=== PATIENT | female | born 1940 | race Caucasian/White ===

== ENCOUNTER → 2019-09-19 | Outpatient (CLI) | payer MEDICARE ==
[~2019-09-19] MED LIST: CHOL100044 PO; DULO60CA64 PO; FERS325 PO; GABA-531 PO; PANT40TA25 PO; PRAV40TA3 PO; RIVA20TA PO; SENN8.6T90 PO; metoprolol PO; vitamin B12 PO
== END | disposition home or self-care (01) ==
LOC: SHCH 12:47
PROVIDERS: ATTEND Internal Medicine Cardiovascular Disease
DX: I73.9 Peripheral vascular disease, unspecified (principal); I87.2 Venous insufficiency (chronic) (peripheral)
CPT/HCPCS: 93925; 93970

== ENCOUNTER → 2020-12-11 | Outpatient (CLI) | payer MEDICARE ==
[~2020-12-11] MED LIST changes: -PANT40TA25 PO; +PANT40TA54 PO
== END | disposition home or self-care (01) ==
LOC: RAH 08:40
PROVIDERS: ATTEND Internal Medicine Gastroenterology
DX: K22.5 Diverticulum of esophagus, acquired (principal); K44.9 Diaphragmatic hernia without obstruction or gangrene
CPT/HCPCS: 74220

== ENCOUNTER 2022-05-16 09:51 | Emergency (ER) | payer MEDICARE ==
[~2022-05-16] VITALS: Ht 172.7 cm; Wt 85.7 kg
[2022-05-16 10:32] LABS: BASOPHILS % (AUTO) 0.8 % (0.0-5.0); EOSINOPHILS % (AUTO) 2.6 % (0.0-8.0); HEMATOCRIT 41.6 % (36-48); LYMPHOCYTES % (AUTO) 13.4 % (21.0-51.0); MEAN CORPUSCULAR HEMOGLOBIN 32.4 pg (27.0-33.0); MEAN CORPUSCULAR HGB CONC 34.4 g/dL (32.0-36.0); MEAN CORPUSCULAR VOLUME 94.3 fL (79-99); MONOCYTES % (AUTO) 9.4 % (3.0-13.0); NEUTROPHILS % (AUTO) 73.4 % (40.0-77.0); PLATELET COUNT (AUTO) 269 K/uL (130-400); RED BLOOD CELL COUNT(AUTO) 4.41 MIL/uL (4.00-5.50); RED CELL DISTRIBUTION WIDTH 13.3 % (11.0-15.5); WHITE BLOOD COUNT (AUTO) 7.8 K/uL (4.8-10.8)
[2022-05-16 10:42] LABS: POTASSIUM 5.1 mmol/L (3.5-5.1)
[2022-05-16 10:47] LABS: ALBUMIN 3.4 g/dL (3.5-5.0); TOTAL PROTEIN, SERUM 7.2 g/dL (6.0-8.3)
[2022-05-16] MEDS ORDERED: HYDR-3420 PO (11:13)
[2022-05-16] MEDS ORDERED: HYDRALAZINE HCL 10 MG TABLET PO SCH (11:30)
[2022-05-16 12:21] VITALS: BP 153/86
[2022-05-16] MEDS ORDERED: LISI10TA24 PO (14:00)
== END 2022-05-16 12:41 | disposition home or self-care (01) ==
LOC: EDH 09:51
DX: I10 Essential (primary) hypertension (principal); I48.91 Unspecified atrial fibrillation; I25.10 Atherosclerotic heart disease of native coronary artery without angina pectoris; E78.00 Pure hypercholesterolemia, unspecified; Z79.899 Other long term (current) drug therapy; Z98.890 Other specified postprocedural states
CPT/HCPCS: 36415; 80053; 84484; 85025

== ENCOUNTER 2022-05-20 11:51 | Emergency (ER) | payer MEDICARE ==
[~2022-05-20] VITALS: Ht 172.7 cm; Wt 84.8 kg
[~2022-05-20 11:51] MED LIST changes: +HYDR-3420 PO; +LISI10TA24 PO
[2022-05-20 12:33] LABS: BASOPHILS % (AUTO) 1.1 % (0.0-5.0); EOSINOPHILS % (AUTO) 3.3 % (0.0-8.0); LYMPHOCYTES % (AUTO) 14.3 % (21.0-51.0); MEAN CORPUSCULAR HEMOGLOBIN 32.6 pg (27.0-33.0); MEAN CORPUSCULAR VOLUME 95.7 fL (79-99); MONOCYTES % (AUTO) 8.4 % (3.0-13.0); NEUTROPHILS % (AUTO) 72.7 % (40.0-77.0); PLATELET COUNT (AUTO) 292 K/uL (130-400); RED BLOOD CELL COUNT(AUTO) 4.39 MIL/uL (4.00-5.50); RED CELL DISTRIBUTION WIDTH 13.8 % (11.0-15.5)
[2022-05-20 12:53] LABS: CREATININE 0.9 mg/dL (0.5-1.5); POTASSIUM 5.3 mmol/L (3.5-5.1)
[2022-05-20 12:54] LABS: B-TYPE NATRIURETIC PEPTIDE 620 pg/mL (0-100)
[2022-05-20 12:56] LABS: TOTAL PROTEIN, SERUM 7.4 g/dL (6.0-8.3)
[2022-05-20 12:57] LABS: ALBUMIN 3.5 g/dL (3.5-5.0)
[2022-05-20 13:38] LABS: APPEARANCE,URINE SL CLOUDY (CLEAR); BILIRUBIN,URINE NEGATIVE (NEGATIVE); COLOR,URINE YELLOW (YELLOW); GLUCOSE, URINE (UA) NEGATIVE (NEGATIVE); KETONES,URINE NEGATIVE (NEGATIVE); LEUKOCYTE ESTERASE ,URINE TRACE (NEGATIVE); NITRATE,URINE NEGATIVE (NEGATIVE); OCCULT BLOOD,URINE NEGATIVE (NEGATIVE); PH,URINE 6.5 (5.0-8.0); PROTEIN,URINE 30 mg/dL (NEGATIVE)
[2022-05-20 13:46] LABS: BACTERIA,URINE Moderate /HPF (None Seen); MUCUS,URINE Few LPF (None Seen); RBC,URINE None Seen /HPF (0-1)
[2022-05-20 15:41] VITALS: BP 158/105
== END 2022-05-20 15:42 | disposition home or self-care (01) ==
LOC: EDH 11:51
DX: I10 Essential (primary) hypertension (principal); E86.9 Volume depletion, unspecified; E78.00 Pure hypercholesterolemia, unspecified; I25.10 Atherosclerotic heart disease of native coronary artery without angina pectoris; I48.91 Unspecified atrial fibrillation; J44.9 Chronic obstructive pulmonary disease, unspecified; Z79.899 Other long term (current) drug therapy
CPT/HCPCS: 36415; 71045; 80053; 81001; 83880; 84484; 85025; 87088; 93005

== ENCOUNTER 2022-06-02 14:12 | Emergency (ER) | payer MEDICARE ==
[~2022-06-02] VITALS: Ht 172.7 cm; Wt 84.8 kg
[2022-06-02 14:32] LABS: BASOPHILS % (AUTO) 0.8 % (0.0-5.0); EOSINOPHILS % (AUTO) 2.3 % (0.0-8.0); HEMATOCRIT 43.1 % (36-48); LYMPHOCYTES % (AUTO) 10.7 % (21.0-51.0); MEAN CORPUSCULAR HEMOGLOBIN 32.3 pg (27.0-33.0); MEAN CORPUSCULAR HGB CONC 33.4 g/dL (32.0-36.0); MEAN CORPUSCULAR VOLUME 96.6 fL (79-99); MONOCYTES % (AUTO) 9.4 % (3.0-13.0); NEUTROPHILS % (AUTO) 76.4 % (40.0-77.0); PLATELET COUNT (AUTO) 284 K/uL (130-400); RED BLOOD CELL COUNT(AUTO) 4.46 MIL/uL (4.00-5.50); RED CELL DISTRIBUTION WIDTH 13.9 % (11.0-15.5); WHITE BLOOD COUNT (AUTO) 8.5 K/uL (4.8-10.8)
[2022-06-02 14:40] LABS: POTASSIUM 4.6 mmol/L (3.5-5.1)
[2022-06-02 14:45] LABS: ALBUMIN 3.3 g/dL (3.5-5.0); MAGNESIUM 1.6 mg/dL (1.80-2.40); TOTAL PROTEIN, SERUM 6.8 g/dL (6.0-8.3)
[2022-06-02 14:58] LABS: B-TYPE NATRIURETIC PEPTIDE 470 pg/mL (0-100)
[2022-06-02] MEDS ORDERED: DIAZEPAM 5 MG/ML 2 ML SYG IVP ONE (15:00)
[2022-06-02] MEDS ORDERED: DIAZ5TAB PO (15:23)
[2022-06-02 15:53] VITALS: BP 139/63
== END 2022-06-02 15:30 | disposition home or self-care (01) ==
LOC: EDH 14:12
DX: F41.9 Anxiety disorder, unspecified (principal); R03.0 Elevated blood-pressure reading, without diagnosis of hypertension; I48.91 Unspecified atrial fibrillation; J44.9 Chronic obstructive pulmonary disease, unspecified; Z79.899 Other long term (current) drug therapy
CPT/HCPCS: 99285; 96374; 71045; 83735; 84484; 80053; 83880; 85025; 36415; 93005; J3360

== ENCOUNTER 2022-06-05 12:50 | Inpatient (IN) | payer MEDICARE ==
[~2022-06-05] VITALS: Ht 167.6 cm; Wt 82.3 kg
[~2022-06-05 12:50] MED LIST changes: +DIAZ5TAB PO
[2022-06-05 13:16] LABS: BASOPHILS % (AUTO) 0.5 % (0.0-5.0); EOSINOPHILS % (AUTO) 0.7 % (0.0-8.0); HEMATOCRIT 46.6 % (36-48); LYMPHOCYTES % (AUTO) 8.3 % (21.0-51.0); MEAN CORPUSCULAR HEMOGLOBIN 32.4 pg (27.0-33.0); MEAN CORPUSCULAR HGB CONC 33.5 g/dL (32.0-36.0); MEAN CORPUSCULAR VOLUME 96.7 fL (79-99); MONOCYTES % (AUTO) 9.3 % (3.0-13.0); NEUTROPHILS % (AUTO) 80.9 % (40.0-77.0); PLATELET COUNT (AUTO) 288 K/uL (130-400); RED BLOOD CELL COUNT(AUTO) 4.82 MIL/uL (4.00-5.50); RED CELL DISTRIBUTION WIDTH 13.8 % (11.0-15.5); WHITE BLOOD COUNT (AUTO) 9.9 K/uL (4.8-10.8)
[2022-06-05] MEDS ORDERED: DILTIAZEM 25MG INJ IVP ONE (13:30)
[2022-06-05 13:34] LABS: ALBUMIN 3.4 g/dL (3.5-5.0); CREATININE 1.1 mg/dL (0.5-1.5); POTASSIUM 4.5 mmol/L (3.5-5.1); TOTAL PROTEIN, SERUM 6.9 g/dL (6.0-8.3)
[2022-06-05] MEDS ORDERED: ACETAMINOPHEN 325 MG TAB PO PRN (15:00)
[2022-06-05] MEDS ORDERED: ONDANSETRON 4MG INJ IVP PRN (15:00)
[2022-06-05] MEDS ORDERED: LOSA100T58 PO (15:38)
[2022-06-05] MEDS ORDERED: PRAV40TA3 PO (15:38)
[2022-06-05] MEDS ORDERED: FLEC50TA3 PO ×2 (15:38)
[2022-06-05] MEDS ORDERED: FERS325 PO (15:38)
[2022-06-05] MEDS ORDERED: TRAZ-187 PO (15:40)
[2022-06-05] MEDS ORDERED: UMEC1DIS IH (15:43)
[2022-06-05] MEDS ORDERED: ALBU1.252 IH (15:43)
[2022-06-05] MEDS ORDERED: SENN-308 PO (15:43)
[2022-06-05 16:37] LABS: APPEARANCE,URINE CLEAR (CLEAR); BILIRUBIN,URINE NEGATIVE (NEGATIVE); COLOR,URINE YELLOW (YELLOW); GLUCOSE, URINE (UA) NEGATIVE (NEGATIVE); KETONES,URINE NEGATIVE (NEGATIVE); LEUKOCYTE ESTERASE ,URINE TRACE (NEGATIVE); NITRATE,URINE NEGATIVE (NEGATIVE); OCCULT BLOOD,URINE TRACE-INTACT (NEGATIVE); PROTEIN,URINE 100 mg/dL (NEGATIVE); UROBILINOGEN,URINE 0.2 mg/dL (0.2-1.0)
[2022-06-05 16:47] LABS: BACTERIA,URINE Few /HPF (None Seen); SQUAMOUS EPITHELIAL CELL,UR Few /HPF (0-2)
[2022-06-05 17:32] VITALS: BP 168/105
[2022-06-05] MEDS: FUROSEMIDE 40MG VIAL IV SCH (19:11)
[2022-06-05 21:00] VITALS: BP 155/88
[2022-06-05] MEDS: METOPROLOL TARTRATE 50 MG TAB PO SCH ×2 (21:00→22:49)
[2022-06-05] MEDS: PHARMACY COMMUNICATION MISC SCH ×2 (22:00→22:18)
[2022-06-05] MEDS ORDERED: METO100T14 PO (22:16)
[2022-06-05] MEDS: TRAZODONE HCL 100 MG TABLET PO SCH (22:49)
[2022-06-05] MEDS ORDERED: ALBUTEROL 0.083% 2.5 MG/3 ML INH IH ONE (23:17)
[2022-06-06] VITALS: BP 138/74
[2022-06-06] MEDS: PHARMACY COMMUNICATION MISC SCH ×3 (02:00→06:00)
[2022-06-06 04:00] VITALS: BP 143/91
[2022-06-06] MEDS ORDERED: ALBUTEROL 0.083% 2.5 MG/3 ML INH IH ONE (06:05)
[2022-06-06 06:51] LABS: HEMATOCRIT 44.3 % (36-48); MEAN CORPUSCULAR HEMOGLOBIN 32.5 pg (27.0-33.0); MEAN CORPUSCULAR HGB CONC 34.3 g/dL (32.0-36.0); MEAN CORPUSCULAR VOLUME 94.9 fL (79-99); RED BLOOD CELL COUNT(AUTO) 4.67 MIL/uL (4.00-5.50); RED CELL DISTRIBUTION WIDTH 13.9 % (11.0-15.5); WHITE BLOOD COUNT (AUTO) 6.8 K/uL (4.8-10.8)
[2022-06-06 07:00] VITALS: BP 159/90
[2022-06-06] MEDS: METOPROLOL TARTRATE 50 MG TAB PO SCH ×3 (07:34→20:04)
[2022-06-06 08:26] LABS: MAGNESIUM 1.3 mg/dL (1.80-2.40)
[2022-06-06] MEDS: PANTOPRAZOLE 40 MG TAB DR PO SCH (08:45)
[2022-06-06] MEDS: DULOXETINE HCL 30 MG CAP PO SCH (08:46)
[2022-06-06] MEDS: RIVAROXABAN 20 MG TABLET PO SCH (08:46)
[2022-06-06] MEDS ORDERED: FLECAINIDE ACETATE 50 MG PO SCH (09:00)
[2022-06-06] MEDS: MAGNESIUM 2GM PREMIX 50ML 50 ML IV PRN (10:08)
[2022-06-06] MEDS ORDERED: IPRATROPIUM 0.5 MG/2.5 ML INH IH ONE (10:58)
[2022-06-06 11:00] VITALS: BP 152/95
[2022-06-06] MEDS: IPRATROPIUM 0.5 MG/2.5 ML INH IH SCH ×3 (11:14→23:35)
[2022-06-06 16:00] VITALS: BP 175/94
[2022-06-06] MEDS: FUROSEMIDE 40MG VIAL IV SCH (17:05)
[2022-06-06 19:03] VITALS: BP 147/90
[2022-06-06] MEDS: TRAZODONE HCL 100 MG TABLET PO SCH (20:03)
[2022-06-06] MEDS: FERROUS SULFATE 325 MG TABLET.DR PO SCH (20:03)
[2022-06-06] MEDS: FLECAINIDE ACETATE 100 MG TABLET PO SCH (20:04)
[2022-06-06] MEDS: UMECLIDINIUM BRM IH SCH (20:04)
[2022-06-06] MEDS: VILANTEROL TR IH SCH (20:04)
[2022-06-06] MEDS: LOSARTAN 100 MG TABLET PO SCH (20:04)
[2022-06-06] MEDS: SIMVASTATIN 20 MG TABLET PO SCH (20:04)
[2022-06-06] MEDS: SENNOSIDES 8.6 MG TABLET PO SCH (20:04)
[2022-06-06] MEDS ORDERED: TRAZODONE HCL 100 MG TABLET PO SCH (21:00)
[2022-06-07 00:03] VITALS: BP 117/69
[2022-06-07 03:03] VITALS: BP 151/94
[2022-06-07 04:13] LABS: MEAN CORPUSCULAR HGB CONC 33.6 g/dL (32.0-36.0); MEAN CORPUSCULAR VOLUME 95.2 fL (79-99); RED BLOOD CELL COUNT(AUTO) 4.62 MIL/uL (4.00-5.50); RED CELL DISTRIBUTION WIDTH 13.8 % (11.0-15.5); WHITE BLOOD COUNT (AUTO) 7.6 K/uL (4.8-10.8)
[2022-06-07 04:26] LABS: MAGNESIUM 1.5 mg/dL (1.80-2.40); POTASSIUM 3.2 mmol/L (3.5-5.1)
[2022-06-07] MEDS ORDERED: POTASSIUM CHLORIDE 10% ELIXIR 20 MEQ/15 ML UDCUP PO PRN (04:30)
[2022-06-07] MEDS ORDERED: POTASSIUM CHLORIDE 10MEQ/100ML 100 ML IV PRN (04:30)
[2022-06-07] MEDS ORDERED: POTASSIUM CHLORIDE 20MEQ/100ML 100 ML IV PRN (04:30)
[2022-06-07] MEDS ORDERED: LIDOCAINE HCL-MPF 1% 2ML VIAL IV PRN (04:30)
[2022-06-07] MEDS: MAGNESIUM 2GM PREMIX 50ML 50 ML IV PRN (04:37)
[2022-06-07] MEDS ORDERED: KCL 20 MEQ ERTAB PO ONE (04:39)
[2022-06-07] MEDS: KCL 20 MEQ ERTAB PO PRN ×3 (04:43→11:15)
[2022-06-07] MEDS: IPRATROPIUM 0.5 MG/2.5 ML INH IH SCH ×2 (06:36→11:07)
[2022-06-07 07:00] VITALS: BP 151/74
[2022-06-07] MEDS ORDERED: REGADENOSON 0.4 MG/5 ML PF SYG IVP SCH (07:30)
[2022-06-07] MEDS: RIVAROXABAN 20 MG TABLET PO SCH (10:12)
[2022-06-07] MEDS: FLECAINIDE ACETATE 100 MG TABLET PO SCH ×2 (10:12→20:31)
[2022-06-07] MEDS: PANTOPRAZOLE 40 MG TAB DR PO SCH (10:12)
[2022-06-07] MEDS: DULOXETINE HCL 30 MG CAP PO SCH (10:12)
[2022-06-07] MEDS: METOPROLOL TARTRATE 50 MG TAB PO SCH ×2 (10:13→20:31)
[2022-06-07 11:00] VITALS: BP 164/88
[2022-06-07] MEDS ORDERED: AMLODIPINE 5 MG TAB ONE (12:15)
[2022-06-07] MEDS: AMLODIPINE 5 MG TAB PO SCH (12:19)
[2022-06-07] MEDS ORDERED: IPRATROPIUM 0.5 MG/2.5 ML INH IH PRN (13:00)
[2022-06-07 16:00] VITALS: BP 145/77
[2022-06-07 19:03] VITALS: BP 148/95
[2022-06-07] MEDS: LOSARTAN 100 MG TABLET PO SCH (20:31)
[2022-06-07] MEDS: SENNOSIDES 8.6 MG TABLET PO SCH (20:31)
[2022-06-07] MEDS: SIMVASTATIN 20 MG TABLET PO SCH (20:31)
[2022-06-07] MEDS: FERROUS SULFATE 325 MG TABLET.DR PO SCH (20:31)
[2022-06-07] MEDS: TRAZODONE HCL 100 MG TABLET PO SCH (20:31)
[2022-06-07] MEDS: VILANTEROL TR IH SCH (20:37)
[2022-06-07] MEDS: UMECLIDINIUM BRM IH SCH (20:37)
[2022-06-08] VITALS (8 sets, daily range): BP systolic 131–157; BP diastolic 58–102
[2022-06-08 04:52] LABS: CREATININE 0.9 mg/dL (0.5-1.5); MAGNESIUM 1.9 mg/dL (1.80-2.40); POTASSIUM 3.9 mmol/L (3.5-5.1)
[2022-06-08] MEDS ORDERED: FUROSEMIDE 20 MG TABLET PO SCH (09:00)
[2022-06-08] MEDS: RIVAROXABAN 20 MG TABLET PO SCH (09:16)
[2022-06-08] MEDS: HYDROCHLOROTHIAZIDE 25 MG TABLET PO SCH (09:17)
[2022-06-08] MEDS: METOPROLOL TARTRATE 50 MG TAB PO SCH ×2 (09:17→20:12)
[2022-06-08] MEDS: AMLODIPINE 5 MG TAB PO SCH (09:17)
[2022-06-08] MEDS: DULOXETINE HCL 30 MG CAP PO SCH (09:17)
[2022-06-08] MEDS: PANTOPRAZOLE 40 MG TAB DR PO SCH (09:17)
[2022-06-08] MEDS ORDERED: FUROSEMIDE 20 MG TABLET ONE (09:23)
[2022-06-08] MEDS: HYDRALAZINE HCL 10 MG TABLET PO SCH ×3 (09:26→20:16)
[2022-06-08] MEDS: KCL 20 MEQ ERTAB PO SCH (09:26)
[2022-06-08] MEDS: FLECAINIDE ACETATE 100 MG TABLET PO SCH ×2 (09:26→20:11)
[2022-06-08] MEDS: ISOSORBIDE MONONITRATE 20 MG TABLET PO SCH ×2 (09:27→20:12)
[2022-06-08] MEDS: FERROUS SULFATE 325 MG TABLET.DR PO SCH (20:11)
[2022-06-08] MEDS: SENNOSIDES 8.6 MG TABLET PO SCH (20:12)
[2022-06-08] MEDS: TRAZODONE HCL 100 MG TABLET PO SCH (20:12)
[2022-06-08] MEDS: LOSARTAN 100 MG TABLET PO SCH (20:12)
[2022-06-08] MEDS: SIMVASTATIN 20 MG TABLET PO SCH (20:12)
[2022-06-08] MEDS: VILANTEROL TR IH SCH (20:13)
[2022-06-08] MEDS: UMECLIDINIUM BRM IH SCH (20:13)
[2022-06-09 03:51] LABS: HEMATOCRIT 43.7 % (36-48); MEAN CORPUSCULAR HEMOGLOBIN 31.8 pg (27.0-33.0); MEAN CORPUSCULAR HGB CONC 32.5 g/dL (32.0-36.0); RED BLOOD CELL COUNT(AUTO) 4.46 MIL/uL (4.00-5.50); RED CELL DISTRIBUTION WIDTH 13.8 % (11.0-15.5); WHITE BLOOD COUNT (AUTO) 7.7 K/uL (4.8-10.8)
[2022-06-09 04:26] LABS: ALBUMIN 2.9 g/dL (3.5-5.0); CREATININE 0.8 mg/dL (0.5-1.5); MAGNESIUM 1.7 mg/dL (1.80-2.40); POTASSIUM 4.1 mmol/L (3.5-5.1); TOTAL PROTEIN, SERUM 6.4 g/dL (6.0-8.3)
[2022-06-09 04:56] VITALS: BP 122/83
[2022-06-09 07:01] VITALS: BP 125/69
[2022-06-09] MEDS: RIVAROXABAN 20 MG TABLET PO SCH (08:59)
[2022-06-09] MEDS: METOPROLOL TARTRATE 50 MG TAB PO SCH ×2 (08:59→21:59)
[2022-06-09] MEDS: PANTOPRAZOLE 40 MG TAB DR PO SCH (09:00)
[2022-06-09] MEDS: DULOXETINE HCL 30 MG CAP PO SCH (09:00)
[2022-06-09] MEDS: ISOSORBIDE MONONITRATE 20 MG TABLET PO SCH ×2 (09:00→21:57)
[2022-06-09] MEDS: HYDRALAZINE HCL 10 MG TABLET PO SCH ×3 (09:00→21:58)
[2022-06-09] MEDS: FLECAINIDE ACETATE 100 MG TABLET PO SCH ×2 (09:01→21:58)
[2022-06-09] MEDS: FUROSEMIDE 20 MG TABLET PO SCH (09:01)
[2022-06-09] MEDS: AMLODIPINE 5 MG TAB PO SCH (09:02)
[2022-06-09] MEDS: HYDROCHLOROTHIAZIDE 25 MG TABLET PO SCH (09:02)
[2022-06-09] MEDS: KCL 20 MEQ ERTAB PO SCH (09:07)
[2022-06-09] MEDS: MAGNESIUM 2GM PREMIX 50ML 50 ML IV PRN (11:43)
[2022-06-09 12:02] VITALS: BP 121/71
[2022-06-09 16:46] VITALS: BP 121/74
[2022-06-09 19:30] VITALS: BP 111/72
[2022-06-09] MEDS: VILANTEROL TR IH SCH (21:00)
[2022-06-09] MEDS: UMECLIDINIUM BRM IH SCH (21:00)
[2022-06-09] MEDS: SIMVASTATIN 20 MG TABLET PO SCH (21:57)
[2022-06-09] MEDS: LOSARTAN 100 MG TABLET PO SCH (21:58)
[2022-06-09] MEDS: SENNOSIDES 8.6 MG TABLET PO SCH (21:58)
[2022-06-09] MEDS: FERROUS SULFATE 325 MG TABLET.DR PO SCH (21:59)
[2022-06-09] MEDS: TRAZODONE HCL 100 MG TABLET PO SCH (22:01)
[2022-06-09 23:44] VITALS: BP 124/81
[2022-06-10 03:45] VITALS: BP 127/62
[2022-06-10 08:00] VITALS: BP 116/76
[2022-06-10] MEDS: ISOSORBIDE MONONITRATE 20 MG TABLET PO SCH (09:08)
[2022-06-10] MEDS: RIVAROXABAN 20 MG TABLET PO SCH (09:08)
[2022-06-10] MEDS: HYDROCHLOROTHIAZIDE 25 MG TABLET PO SCH (09:09)
[2022-06-10] MEDS: DULOXETINE HCL 30 MG CAP PO SCH (09:09)
[2022-06-10] MEDS: FLECAINIDE ACETATE 100 MG TABLET PO SCH (09:09)
[2022-06-10] MEDS: HYDRALAZINE HCL 10 MG TABLET PO SCH ×2 (09:09→15:03)
[2022-06-10] MEDS: FUROSEMIDE 20 MG TABLET PO SCH (09:10)
[2022-06-10] MEDS: AMLODIPINE 5 MG TAB PO SCH (09:10)
[2022-06-10] MEDS: METOPROLOL TARTRATE 50 MG TAB PO SCH (09:21)
[2022-06-10] MEDS: PANTOPRAZOLE 40 MG TAB DR PO SCH (09:21)
[2022-06-10] MEDS: KCL 20 MEQ ERTAB PO SCH (09:21)
[2022-06-10 11:00] VITALS: BP 124/85
== END 2022-06-10 16:32 | disposition home or self-care (01) | DRG 291 ==
LOC: EDH 12:50 → EDHIP 14:49 → 2DH 21:01
PROVIDERS: ADMIT Internal Medicine Infectious Disease; ATTEND Internal Medicine Infectious Disease
DX: I11.0 Hypertensive heart disease with heart failure (principal); I50.43 Acute on chronic combined systolic (congestive) and diastolic (congestive) heart failure; I16.1 Hypertensive emergency; L97.919 Non-pressure chronic ulcer of unspecified part of right lower leg with unspecified severity; Z20.822 Contact with and (suspected) exposure to COVID-19; I48.0 Paroxysmal atrial fibrillation; E66.9 Obesity, unspecified; Z96.653 Presence of artificial knee joint, bilateral; E78.00 Pure hypercholesterolemia, unspecified; M19.90 Unspecified osteoarthritis, unspecified site; F32.A Depression, unspecified; F41.9 Anxiety disorder, unspecified; I25.10 Atherosclerotic heart disease of native coronary artery without angina pectoris; J44.9 Chronic obstructive pulmonary disease, unspecified; Z79.899 Other long term (current) drug therapy; Z79.01 Long term (current) use of anticoagulants; Z85.3 Personal history of malignant neoplasm of breast; Z87.891 Personal history of nicotine dependence; Z90.11 Acquired absence of right breast and nipple; Z90.710 Acquired absence of both cervix and uterus; Z68.29 Body mass index [BMI] 29.0-29.9, adult
CPT/HCPCS: 36415; 71045; 78452; 80048; 80053; 81001; 82550; 83735; 83874; 83880; 84484; 85025; 85027; 87088; 87635; 93005; 93017; 93306; 93925; 94640; 94664; 96374; A9500; G0378; J1940; J2785; J3475; J3490

== ENCOUNTER 2022-07-05 08:41 | Day surgery (SDC) | payer MEDICARE ==
[2022-07-01 12:22] LABS: BASOPHILS % (AUTO) 0.6 % (0.0-5.0); EOSINOPHILS % (AUTO) 2.6 % (0.0-8.0); HEMATOCRIT 46.6 % (36-48); LYMPHOCYTES % (AUTO) 17.4 % (21.0-51.0); MEAN CORPUSCULAR HGB CONC 33.5 g/dL (32.0-36.0); MEAN CORPUSCULAR VOLUME 95.7 fL (79-99); MONOCYTES % (AUTO) 8.3 % (3.0-13.0); PLATELET COUNT (AUTO) 301 K/uL (130-400); RED BLOOD CELL COUNT(AUTO) 4.87 MIL/uL (4.00-5.50); RED CELL DISTRIBUTION WIDTH 13.3 % (11.0-15.5); WHITE BLOOD COUNT (AUTO) 8.1 K/uL (4.8-10.8)
[2022-07-01 12:33] LABS: APPEARANCE,URINE CLEAR (CLEAR); BILIRUBIN,URINE NEGATIVE (NEGATIVE); COLOR,URINE YELLOW (YELLOW); GLUCOSE, URINE (UA) NEGATIVE (NEGATIVE); KETONES,URINE NEGATIVE (NEGATIVE); LEUKOCYTE ESTERASE ,URINE 75 Leu/uL (NEGATIVE); NITRATE,URINE NEGATIVE (NEGATIVE); OCCULT BLOOD,URINE NEGATIVE (NEGATIVE); PROTEIN,URINE 10 mg/dL (NEGATIVE); UROBILINOGEN,URINE 0.2 mg/dL (0.2-1.0)
[2022-07-01 12:35] LABS: CREATININE 1.1 mg/dL (0.5-1.5); POTASSIUM 5.2 mmol/L (3.5-5.1)
[2022-07-01 12:38] LABS: PROTHROMBIN TIME 10.9 SEC (9.6-11.6)
[2022-07-01 12:40] LABS: PARTIAL THROMBOPLASTIN TIME 27.6 SEC (26.3-35.5)
[2022-07-01 12:46] LABS: B-TYPE NATRIURETIC PEPTIDE 388 pg/mL (0-100)
[2022-07-01 12:49] LABS: BACTERIA,URINE Moderate /HPF (None Seen); RBC,URINE 0-1 /HPF (0-1)
[2022-07-04 09:19] VITALS: BP 142/71
[2022-07-05] VITALS (12 sets, daily range): BP systolic 130–156; BP diastolic 66–96
[~2022-07-05] VITALS: Ht 172.7 cm; Wt 83.3 kg
[~2022-07-05 08:41] MED LIST changes: +0.9%NACL 1000ML 1,000 ML IV SCH; +ALBU1.252 IH; -CHOL100044 PO; -DIAZ5TAB PO; -GABA-531 PO; -LISI10TA24 PO; +LOSA100T58 PO; +Metoprolol Tartrate PO; +SENN-308 PO; -SENN8.6T90 PO; +TRAZ-187 PO; +UMEC1DIS IH; +VITAMIN B12 PO; +VITAMIN D3 PO; -metoprolol PO; -vitamin B12 PO
[2022-07-05] MEDS ORDERED: IOHEXOL-350 50ML VIAL IV ONE (09:54)
[2022-07-05] MEDS ORDERED: HEPARIN 10,000 UNIT/10ML (1,000 UNIT/ML) VIAL ONE (09:54)
[2022-07-05] MEDS ORDERED: IOHEXOL 350 MG/ML 100ML INFUS..BTL IV ONE (09:54)
[2022-07-05] MEDS ORDERED: MIDAZOLAM HCL 5 MG/ML 2ML VIAL IV ONE (09:54)
[2022-07-05] MEDS ORDERED: FENTANYL CITRATE PF 50 MCG/1 ML 2ML VIAL ONE (09:54)
[2022-07-05] MEDS ORDERED: LIDOCAINE HCL-MPF 2% 10ML AMP IJ ONE (09:54)
[2022-07-05] MEDS ORDERED: BIVALIRUDIN 250 MG/VIAL IV ONE (10:03)
[2022-07-05] MEDS ORDERED: METOPROLOL TARTRATE 1 MG/ML 5ML VIAL IV ONE ×2 (10:14→10:24)
[2022-07-05] MEDS ORDERED: GLUCAGON 1MG KIT 1 MG ML IM PRN (11:00)
[2022-07-05] MEDS ORDERED: HYDRALAZINE 20MG/ML VIAL IV PRN (11:00)
[2022-07-05] MEDS ORDERED: NITROGLYCERIN 0.4 MG SL TAB SL PRN (11:00)
[2022-07-05] MEDS ORDERED: 0.9%NACL 1000ML 1,000 ML IV SCH (11:00)
[2022-07-05] MEDS ORDERED: DEXTROSE 50%-WATER 50 ML DISP.SYRIN IV PRN (11:00)
[2022-07-05] MEDS ORDERED: ATROPINE 1MG SYG IVP ONE (11:18)
== END 2022-07-05 15:55 | disposition home or self-care (01) ==
LOC: DAH 08:41
PROVIDERS: ATTEND Internal Medicine Cardiovascular Disease
DX: I25.110 Atherosclerotic heart disease of native coronary artery with unstable angina pectoris (principal); I10 Essential (primary) hypertension; K21.9 Gastro-esophageal reflux disease without esophagitis; F32.A Depression, unspecified; J44.9 Chronic obstructive pulmonary disease, unspecified; I48.0 Paroxysmal atrial fibrillation; E78.49 Other hyperlipidemia; I87.2 Venous insufficiency (chronic) (peripheral); Z79.01 Long term (current) use of anticoagulants; Z72.89 Other problems related to lifestyle; Z79.899 Other long term (current) drug therapy; Z98.890 Other specified postprocedural states
CPT/HCPCS: 80048; 83880; 85025; 85610; 85730; 87088; 81001; 36415; 93005; 93458; C1894 ×2; C1769; Q9965; J3010; J3490 ×3; J0461; J1644 ×2; J2250; Q9967; A4215; A4222; A4221; A4663; A4216; A4606; A4223 ×3; 99156; 99157; J0583

== ENCOUNTER → 2022-07-28 | Outpatient (CLI) | payer MEDICARE ==
[~2022-07-28] MED LIST changes: -0.9%NACL 1000ML 1,000 ML IV SCH; +LIDOCAINE HCL 4% LTA SOL 4 ML VIAL TP ONE
== END | disposition home or self-care (01) ==
LOC: WHH 08:01
PROVIDERS: ATTEND Family Medicine
DX: L97.812 Non-pressure chronic ulcer of other part of right lower leg with fat layer exposed (principal); L92.9 Granulomatous disorder of the skin and subcutaneous tissue, unspecified; I11.0 Hypertensive heart disease with heart failure; I50.43 Acute on chronic combined systolic (congestive) and diastolic (congestive) heart failure; I48.0 Paroxysmal atrial fibrillation; E78.49 Other hyperlipidemia; E78.00 Pure hypercholesterolemia, unspecified; I25.10 Atherosclerotic heart disease of native coronary artery without angina pectoris; K21.9 Gastro-esophageal reflux disease without esophagitis; I89.0 Lymphedema, not elsewhere classified; J44.9 Chronic obstructive pulmonary disease, unspecified; M19.90 Unspecified osteoarthritis, unspecified site; F41.9 Anxiety disorder, unspecified; F32.A Depression, unspecified; Z85.3 Personal history of malignant neoplasm of breast; Z79.01 Long term (current) use of anticoagulants; Z79.899 Other long term (current) drug therapy; Z87.891 Personal history of nicotine dependence; Z90.710 Acquired absence of both cervix and uterus; Z90.11 Acquired absence of right breast and nipple; Z96.653 Presence of artificial knee joint, bilateral
CPT/HCPCS: 11104; A4450

== ENCOUNTER → 2022-08-04 | Outpatient (CLI) | payer MEDICARE | END | disposition home or self-care (01) | LOC: WHH 08:15 | PROVIDERS: ATTEND Family Medicine | DX: L97.812 Non-pressure chronic ulcer of other part of right lower leg with fat layer exposed (principal); I87.2 Venous insufficiency (chronic) (peripheral); L92.9 Granulomatous disorder of the skin and subcutaneous tissue, unspecified; I11.0 Hypertensive heart disease with heart failure; I50.43 Acute on chronic combined systolic (congestive) and diastolic (congestive) heart failure; I48.0 Paroxysmal atrial fibrillation; E78.49 Other hyperlipidemia; E78.00 Pure hypercholesterolemia, unspecified; I25.10 Atherosclerotic heart disease of native coronary artery without angina pectoris; K21.9 Gastro-esophageal reflux disease without esophagitis; I89.0 Lymphedema, not elsewhere classified; J44.9 Chronic obstructive pulmonary disease, unspecified; M19.90 Unspecified osteoarthritis, unspecified site; F41.9 Anxiety disorder, unspecified; F32.A Depression, unspecified; Z85.3 Personal history of malignant neoplasm of breast; Z79.01 Long term (current) use of anticoagulants; Z79.899 Other long term (current) drug therapy; Z87.891 Personal history of nicotine dependence; Z90.710 Acquired absence of both cervix and uterus; Z90.11 Acquired absence of right breast and nipple; Z96.653 Presence of artificial knee joint, bilateral | CPT/HCPCS: 11042; A6248; A6209; A4450 ==

== ENCOUNTER → 2023-01-02 | Outpatient (CLI) | payer MEDICARE ==
[~2023-01-02] MED LIST changes: -LIDOCAINE HCL 4% LTA SOL 4 ML VIAL TP ONE
== END | disposition home or self-care (01) ==
LOC: RAH 08:52
PROVIDERS: ATTEND Otolaryngology Plastic Surgery within the Head & Neck
DX: K22.5 Diverticulum of esophagus, acquired (principal); R13.19 Other dysphagia
CPT/HCPCS: 74220

== ENCOUNTER → 2024-05-24 | Outpatient (CLI) | payer MEDICARE ==
[~2024-05-24] MED LIST changes: -LOSA100T58 PO; +LOSA100T59 PO
== END | disposition home or self-care (01) ==
LOC: SHCH 14:33
PROVIDERS: ATTEND Internal Medicine Cardiovascular Disease
DX: R06.09 Other forms of dyspnea (principal); R07.9 Chest pain, unspecified
CPT/HCPCS: 93306

== ENCOUNTER → 2024-11-13 | Outpatient (CLI) | payer MEDICARE, OTHER ==
--- NOTE | 2024-11-14 07:25 | HMCSR ---
APPROVED REPORT EXAM: Two-dimensional and M-mode echocardiogram with Doppler and color Doppler. 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 Murmur 2D Dimensions RVDd4.6 cmLVEF(%)50.0 (>50%)LVED Vol(simp.)103.0 mL IVSd1.3 (0.7-1.1cm)FS(%)25 %LVES Vol(simp.)55.0 mL LVDd5.0 (3.8-5.6cm)Ao Root(2D)3.2 (2.0-3.7cm)LVEF(%, simp.)46 % PWd1.3 (0.7-1.1cm)LVOT diam2.0 (1.8-2.4cm)LA ESV INDEX (BP)85.56 mL/m2 LVDs3.8 (2.5-4.0cm)IVC diam1.9 cm Aortic Valve AoV Vmax1.5 m/Pat Peak GR8.8 mmHgLVOT Vmax0.8 m/s AoV VTI0.3 mAo Mean GR4.6 mmHgLVOT VTI0.17 m BETSY (VMAX)1.7 cm2Al P1/2T520 msAVA (VTI) 1.7 cm2 Mitral Valve MV E Nuux768.0 cm/sDECEL Pyom502 ms MV A Vmax33.4 cm/sP 1/2 T42 ms E/A ratio3.4MVA (PHT)5.2 cm2 MR Max PG132 mmHg TDI E/E' Khesog86.9E/E' Lateral9.9 Pulmonary Valve PV Vmax0.9 m/sPV VTI0.18 mPV Mean GR2 mmHg PV Peak GR3.3 mmHg Tricuspid Valve TR Vmax3.8 m/sRAP (EST) 8 bfJdLJPH32.6 mmHg TR Peak GR57.6 mmHg Left Ventricle The left ventricle structure and function is normal. There is normal LV segmental wall motion. There is mild concentric left ventricular hypertrophy. LVEF is 55-60%. Indeterminate diastolic dysfunction. Right Ventricle The right ventricle is moderately dilated. The right ventricular systolic function is normal. Atria The left atrium is severely dilated. The right atrium is severely dilated. Aortic Valve Aortic valve is trileaflet. Aortic valve leaflets are sclerotic but open well. Mild aortic regurgitat ion. Calculated aortic valve area is 1.7 cm2 with maximum pressure gradient of 8.8 mmHg and mean pres sure gradient of 4.6 mmHg. Mitral Valve Mitral valve leaflets are mildly sclerotic but open well. Mitral annular calcification is mild. Aleida l regurgitation is moderate. There is no mitral valve stenosis. Tricuspid Valve The tricuspid valve leaflets appear normal. There is severe tricuspid regurgitation. Right ventricula r systolic pressure is estimated at greater than 60 mmHg. Pulmonic Valve The pulmonic valve leaflets are thin and pliable; valve motion is normal. There is trace pulmonic navi vular regurgitation. Great Vessels The aortic root is normal in size. IVC is dilated and collapses >50% with inspiration. Pericardium No pericardial effusion. Conclusion LVEF is 55-60%. There is mild concentric left ventricular hypertrophy. There is normal LV segmental wall motion. The right ventricle is moderately dilated. The left atrium is severely dilated. The right atrium is severely dilated. Mild aortic regurgitation. Mitral valve leaflets are mildly sclerotic but open well. Mitral annular calcification is mild. Mitral regurgitation is moderate. There is severe tricuspid regurgitation. Right ventricular systolic pressure is estimated at greater than 60 mmHg. No pericardial effusion.
== END | disposition home or self-care (01) ==
LOC: SHCH 15:26
PROVIDERS: ATTEND Internal Medicine Cardiovascular Disease
DX: I08.3 Combined rheumatic disorders of mitral, aortic and tricuspid valves (principal); R01.1 Cardiac murmur, unspecified
CPT/HCPCS: 93306